=== PATIENT | male | born 1990 | race Caucasian/White ===

== ENCOUNTER 2018-02-08 17:32 | Emergency (ER) | payer SELFPAY ==
[~2018-02-08] VITALS: Ht 180.3 cm; Wt 80.0 kg
[2018-02-08 17:38] VITALS: BP 146/98; PULSE 92; TEMP 36.5; O2SAT 99; Ht 180.3 cm; Wt 80.0 kg
--- NOTE | 2018-02-08 17:49 | EMERGENCY ROOM VISIT NOTE ---
History Report prepared by Russ: Seferino Santiago Under the Supervision of: Dr. Rory Vieira M.D. First contact with patient: 17:42 Chief Complaint: OTHER COMPLAINT Stated Complaint: FEET INFECTIONS- NEEDS MEDICAL CLEARANCE History of Present Illness The patient is a 27 year old male who presents to the Emergency Room with complaints of persistent bilateral feet infections that started over the past few days. The patient is on the way to the skilled nursing, but needs to be medically cleared before going there. The patient states that his feet are burning, and he has pain to both feet, the left foot worse than the right foot. He notes that he has been injecting crystal meth for years, and only injects into his arms, and has never had a reaction like this before. The patient states that he has never injected into his feet. Source of History: patient Onset: Over past few days Position: foot (bilateral) Symptom Intensity: feet feel hot Quality: other (redness, infection) Timing: other (over past few days) Note: Associated symptoms: Right and left foot pain. Review of Systems See HPI for pertinent positives and negatives. A total of ten systems were reviewed and were otherwise negative. Past Medical & Surgical Medical Problems: (1) No chronic diseases present Family History No pertinent family history Social History Smoking Status: Current Every Day Smoker Drug Use: other (crystal meth) Housing Status: other (skilled nursing) Current/Historical Medications Scheduled Clotrimazole (Topical) (Lotrimin Af), 1 APPLN TOP BID Allergies Coded Allergies: No Known Allergies (Unverified , 02/08/18) Physical Exam Vital Signs Date Time Temp Pulse Resp B/P (MAP) Pulse Ox O2 Delivery O2 Flow Rate FiO2 02/08/18 17:38 36.5 92 16 146/98 99 Room Air Physical Exam Physical Exam GENERAL: He is oriented to person, place, and time. He appears well-developed and well-nourished. he does not appear distressed. ____ HENT: Exam performed. Head: Normocephalic and atraumatic. Right Ear: External ear normal. No mastoid tenderness. Left Ear: External ear normal. No mastoid tenderness. Mouth/Throat: The oropharynx is clear and moist. No trismus in the jaw. No dental abscesses or uvula swelling. No oropharyngeal exudate or tonsillar abscesses. ____ EYES: Conjunctivae and EOM are normal. Pupils are equal, round, and reactive to light. Right eye exhibits no discharge. Left eye exhibits no discharge. No scleral icterus. ____ NECK: Normal range of motion. Neck supple. No JVD present. No spinous process tenderness present. No carotid bruit present. No rigidity. No tracheal deviation and normal range of motion present. No Brudzinski's sign and no Kernig 's sign noted. ____ CV: Normal rate, regular rhythm, normal heart sounds and intact distal pulses. There is no peripheral edema. Palpable radial pulses bue. ____ PULM/CHEST: Effort normal and breath sounds normal. No respiratory distress. No stridor. He has no wheezes. He has no rales. Chest Wall: He exhibits no tenderness. ____ ABD: The abdomen is soft. Bowel sounds are normal. He has no distension. No mass is present. There is no tenderness. There is no rebound, no guarding, no Chahal's sign and no tenderness at McBurney's point. Rovsig negative MUSC/SKEL: Full range of motion of all joints of all bilateral lower extremities. No effusions. No swelling. LYMPH: No cervical adenopathy. ____ NEURO: He is alert and oriented to person, place, and time. He has normal strength. No cranial nerve deficit or sensory deficit. Coordination and gait normal. GCS eye subscore is 4. GCS verbal subscore is 5. GCS motor subscore is 6. Cerebellar tests wnl. ____ SKIN: Mild erythema over bilateral toes consistent with the appearance of tinea infection._ PSYCH: He has a normal mood and affect. He behavior is normal. Judgment and thought content normal. ____ Medical Decision & Procedures ED Course 1742: The patient was evaluated in room B9. A complete history and physical exam was performed. The patient's vital signs are stable. The patient has tinea pedis and he was discharged with antifungal ointment. The patient was discharged into custody of accompanying officers. DISCHARGE - Plan of care discussed with patient and questions answered. The patient was given both verbal and printed discharge instructions. The patient verbalized understanding and ability to comply. The patient is to seek outpatient follow up as noted in the discharge instructions. The patient verbalized understanding and ability to comply. The patient is discharged in stable condition. The patient was instructed to return for worsening symptoms. Medical Decision vital signs are stable. The patient has tinea pedis and he was discharged with antifungal ointment. The patient was discharged into custody of accompanying officers. DISCHARGE - Plan of care discussed with patient and questions answered. The patient was given both verbal and printed discharge instructions. The patient verbalized understanding and ability to comply. The patient is to seek outpatient follow up as noted in the discharge instructions. The patient verbalized understanding and ability to comply. The patient is discharged in stable condition. The patient was instructed to return for worsening symptoms. Medication Reconcilliation Current Medication List: was personally reviewed by me Blood Pressure Screening Patient's blood pressure: Elevated blood pressure Blood pressure disposition: Elevated BP felt to be situational Impression Primary Impression: Tinea pedis Scribe Attestation The scribe's documentation has been prepared under my direction and personally reviewed by me in its entirety. I confirm that the note above accurately reflects all work, treatment, procedures, and medical decision making performed by me. The chart was completed utilizing [email or web address] Speech voice recognition software. Grammatical errors, random word insertions, pronoun errors, and incomplete sentences are an occasional consequence of this system due to software limitations, ambient noise, and hardware issues. Any formal questions or concerns about the content, text, or information contained within the body of this dictation should be directly addressed to the physician for clarification. Departure Information Dispostion Home / Self-Care Prescriptions Clotrimazole (Topical) (LOTRIMIN AF) 1 % Cre 1 APPLN TOP BID for 7 Days, #24 GM 1 Refill Prov: Rory Vieira M.D. 02/08/18 Referrals No Doctor, Assigned (PCP) Patient Instructions ED Fungal Infec Athlete Foot, My [facility] Problem Qualifiers Primary Impression: Tinea pedis Laterality: bilateral Qualified Codes: B35.3 - Tinea pedis
[2018-02-08] MEDS ORDERED: CLOT-51 TOP (18:09)
== END 2018-02-08 18:21 ==
LOC: C.EDB 17:34
DX: B35.3 Tinea pedis (principal); R03.0 Elevated blood-pressure reading, without diagnosis of hypertension; F17.200 Nicotine dependence, unspecified, uncomplicated